=== PATIENT | female | born 1995 | race African-American/Black ===

== ENCOUNTER 2022-12-20 19:13 | Emergency (ER) | payer OTHER ==
[~2022-12-20] VITALS: Ht 167.6 cm; Wt 65.9 kg
[2022-12-20] MEDS ORDERED: KETOROLAC 60MG 2ML VIAL IM ONE (20:20)
[2022-12-20] MEDS ORDERED: LIDOCAINE 5% (LIDODERM) PATCH TD ONE (20:20)
[2022-12-20] MEDS ORDERED: LIDO5DIS41 TD (20:56)
[2022-12-20] MEDS ORDERED: KETO10TAB PO (20:56)
[2022-12-20 21:04] VITALS: BP 120/65
== END 2022-12-20 21:04 | disposition home or self-care (01) ==
LOC: M ED 19:13
DX: G89.4 Chronic pain syndrome (principal); M54.50 Low back pain, unspecified; F32.A Depression, unspecified; F41.9 Anxiety disorder, unspecified
CPT/HCPCS: 72131; 96372; 99283; J1885

== ENCOUNTER → 2023-01-08 | Outpatient (CLI) | payer OTHER ==
[~2023-01-08] MED LIST: KETO10TAB PO; LIDO5DIS41 TD
== END ==
LOC: M PLAIMG 07:13
PROVIDERS: ATTEND Physician Assistant
DX: M25.332 Other instability, left wrist (principal); M25.552 Pain in left hip

== ENCOUNTER → 2023-06-18 | Outpatient (REF) | LOC: M PLAIMG 08:08 | PROVIDERS: ATTEND Internal Medicine | DX: R52 Pain, unspecified (principal) ==

== ENCOUNTER 2023-07-09 16:03 | Emergency (ER) | payer OTHER ==
[~2023-07-09] VITALS: Ht 167.6 cm; Wt 66.7 kg
[2023-07-09 16:04] VITALS: BP 128/73; TEMP 98.6; O2SAT 100
[2023-07-09] MEDS ORDERED: SUMA50TA2 PO (16:23)
[2023-07-09] MEDS ORDERED: EFFE150C2 PO (16:24)
[2023-07-09] MEDS ORDERED: PRAZ2CAP PO (16:24)
[2023-07-09] MEDS ORDERED: NEUR300C PO (16:26)
[2023-07-09] MEDS ORDERED: CELE0.09 PO (16:27)
[2023-07-09] MEDS ORDERED: QUET50TA4 PO (16:27)
== END 2023-07-09 19:48 | disposition left against medical advice (07) ==
LOC: M ED 16:03
DX: Z53.21 Procedure and treatment not carried out due to patient leaving prior to being seen by health care provider (principal)

== ENCOUNTER 2023-11-08 08:20 | Day surgery (SDC) | payer OTHER ==
[~2023-11-08] VITALS: Ht 167.6 cm; Wt 68.0 kg
[~2023-11-08 08:20] MED LIST changes: +CELE0.09 PO; +DULO1CAP6 PO; +EFFE150C3 PO; +KETOROLAC 60MG 2ML VIAL As Ordered ONE; +LIDOCAINE 2% 100MG/5ML SDV (FOR ANES.) As Ordered ONE; +MIDAZOLAM INJ 2MG/2ML VIAL As Ordered ONE; +NEUR300C PO; +ONDANSETRON 4MG 2ML VIAL As Ordered ONE; +PRAZ2CAP PO; +QUET50TA4 PO; +SUMA50TA2 PO; +ceFAZolin SOD 2 GM in IV 1 EA IV ONE; +fentaNYL 100 MCG/2 ML INJECTION As Ordered ONE; +propofoL 200 MG/20 ML VIAL As Ordered ONE
[2023-11-08] MEDS ORDERED: BACITRACIN OINTMENT 30GM TUBE As Ordered ONE (11:00)
[2023-11-08] MEDS ORDERED: propofoL 200 MG/20 ML VIAL As Ordered ONE (11:24)
[2023-11-08] MEDS ORDERED: ACETAMINOPHEN 1000MG 100ML IV BAG As Ordered ONE (11:34)
[2023-11-08] MEDS ORDERED: ceFAZolin 2 GM/D5W 50 ML IV BAG As Ordered ONE (11:35)
[2023-11-08] MEDS ORDERED: ONDANSETRON 4MG 2ML VIAL IV PRN (13:10)
[2023-11-08] MEDS ORDERED: LR 1,000 ML IV SCH (13:10)
[2023-11-08] MEDS ORDERED: oxyCODONE 5MG TAB PO PRN (13:10)
[2023-11-08] MEDS: HYDROMORPHONE HCL 0.5 MG/ 0.5 ML SYRINGE IV PRN ×2 (13:14→13:17)
[2023-11-08] MEDS ORDERED: PERC5TAB12 PO (13:14)
[2023-11-08] MEDS: fentaNYL 100 MCG/2 ML INJECTION IV PRN ×4 (13:23→13:37)
[2023-11-08 14:30] VITALS: BP 120/63; TEMP 94.9; O2SAT 100
== END 2023-11-08 14:42 | disposition home or self-care (01) ==
LOC: M SDC 08:20
PROVIDERS: ATTEND Orthopaedic Surgery Hand Surgery
DX: M25.332 Other instability, left wrist (principal); M24.132 Other articular cartilage disorders, left wrist; F32.A Depression, unspecified; F41.9 Anxiety disorder, unspecified; Z79.899 Other long term (current) drug therapy; Z91.013 Allergy to seafood
CPT/HCPCS: 25337; 76000; 81025; C1713; J0131; J0665; J0690; J1100; J1170; J1885; J2250; J2405; J3010

== ENCOUNTER → 2023-11-15 | Outpatient (CLI) | payer OTHER ==
[~2023-11-15] MED LIST changes: -KETOROLAC 60MG 2ML VIAL As Ordered ONE; -LIDOCAINE 2% 100MG/5ML SDV (FOR ANES.) As Ordered ONE; -MIDAZOLAM INJ 2MG/2ML VIAL As Ordered ONE; -ONDANSETRON 4MG 2ML VIAL As Ordered ONE; +PERC5TAB12 PO; -ceFAZolin SOD 2 GM in IV 1 EA IV ONE; -fentaNYL 100 MCG/2 ML INJECTION As Ordered ONE; -propofoL 200 MG/20 ML VIAL As Ordered ONE
== END ==
LOC: M SOG 08:01
PROVIDERS: ATTEND Physician Assistant
DX: S63.592A Other specified sprain of left wrist, initial encounter (principal); W18.30XA Fall on same level, unspecified, initial encounter; Y92.009 Unspecified place in unspecified non-institutional (private) residence as the place of occurrence of the external cause

== ENCOUNTER → 2023-12-12 | Outpatient (CLI) | payer OTHER | LOC: M SOG 08:22 | PROVIDERS: ATTEND Physician Assistant | DX: S63.592A Other specified sprain of left wrist, initial encounter (principal); W18.30XA Fall on same level, unspecified, initial encounter; Y92.009 Unspecified place in unspecified non-institutional (private) residence as the place of occurrence of the external cause ==

== ENCOUNTER → 2024-01-17 | Outpatient (CLI) | payer OTHER | LOC: M SOG 08:52 | PROVIDERS: ATTEND Physician Assistant | DX: M25.532 Pain in left wrist (principal) ==